=== PATIENT | female | born 1960 | race Caucasian/White ===

== ENCOUNTER 2019-03-28 08:21 | Emergency (ER) | payer OTHER ==
[2019-03-28 08:36] VITALS: BP 136/69
--- NOTE | 2019-03-28 08:45 | ED Physician Documentation ---
PD HPI HEENT - Stated complaint Stated Complaint: UNABLE TO HEAR OUT OF RT EAR - Chief complaint Chief Complaint: Heent - History obtained from History obtained from: Patient - History of Present Illness Timing - onset: Last night Timing - details: Abrupt onset, Still present Location: Right ear Associated symptoms: No: Fever, Congestion, Swollen nodes, Headache, Cough Similar symptoms before: Has not had sx before Recently seen: Not recently seen Review of Systems Constitutional: denies: Fever Nose: reports: Congestion. denies: Rhinorrhea / runny nose Throat: denies: Sore throat Respiratory: denies: Cough Musculoskeletal: reports: Extremity pain (left posterior knee pain with walking and hiking for couple of months.) PD PAST MEDICAL HISTORY - Past Medical History Cardiovascular: None Respiratory: None Neuro: None Endocrine/Autoimmune: None - Present Medications Home Medications: Ambulatory Orders Medication Instructions Recorded Confirmed Cetirizine [ZyrTEC] 10 mg PO DAILY #15 tablet 03/28/19 dexAMETHasone [Decadron] 4 mg PO DAILY #5 tablet 03/28/19 - Allergies Allergies/Adverse Reactions: Allergies Allergy/AdvReac Type Severity Reaction Status Date / Time meclizine AdvReac Anxiety Verified 03/28/19 08:37 PD ED PE NORMAL - Vitals Vital signs reviewed: Yes - General General: Alert and oriented X 3, No acute distress, Well developed/nourished - HEENT HEENT: Pharynx benign, Other (left TM is normal. Right canal without redness, the TM is without redness but does have fluid behind drum (serous and not appearing infectious).) - Neck Neck: Supple, no meningeal sign, No adenopathy - Cardiac Cardiac: RRR, No murmur Results - Vitals Vitals: Vital Signs - 24 hr 03/28/19 08:33 Temperature 36.4 C L Heart Rate 63 Respiratory 18 Rate Blood Pressure 136/69 H O2 Saturation 99 Oxygen O2 Source Room air PD MEDICAL DECISION MAKING - ED course Complexity details: considered differential (consider OM but the TM has fluid but no redness, so appears just serous. The leg pain seems upper gastroc strain or tendonitis. She scores 0 on Wells DVT criteria. ), d/w patient Departure - Departure Disposition: 01 Home, Self Care Clinical Impression: Posterior left knee pain Serous otitis media Qualifiers: Chronicity: acute Laterality: right Recurrence: non-recurrent Qualified Code(s): H65.01 - Acute serous otitis media, right ear Condition: Stable Record reviewed to determine appropriate education?: Yes Instructions: ED Otitis Media Serous Adult Prescriptions: Cetirizine [ZyrTEC] 10 mg PO DAILY #15 tablet dexAMETHasone [Decadron] 4 mg PO DAILY #5 tablet Comments: There is fluid without signs of infection behind the right eardrum. The canal is open without any wax. I think this is distorting your hearing. This may be coming from allergies or sometimes a viral illness. Try some antihistamine such as cetirizine/Zyrtec daily. Decadron steroid anti- inflammatory daily will help as well. For your leg pain, I would think it more likely tendinitis and continuing the ibuprofen to 3 times a day is reasonable. Clinically would be low risk suspic ion for blood clots and I did print out a criteria call the Wells criteria that is used to gauge that. Follow-up with your primary care this coming Wednesday as planned. Discharge Date/Time: 03/28/19 09:54
[2019-03-28] MEDS ORDERED: CHERRY SYRUP 10 ML UDC PO ONE (09:17)
[2019-03-28] MEDS ORDERED: CETIRIZINE 10 MG TABLET PO STA (09:17)
[2019-03-28] MEDS ORDERED: DEXAMETHASONE 10 MG/ML VIAL PO STA (09:17)
[2019-03-28] MEDS ORDERED: diphenhydrAMINE 25 MG CAPSULE PO STA (09:17)
== END 2019-03-28 09:54 | disposition home or self-care (01) ==
LOC: ED 08:21
DX: H65.01 Acute serous otitis media, right ear (principal); M25.562 Pain in left knee
CPT/HCPCS: 99283; A9270